=== PATIENT | female | born 1975 | race Asian ===

== ENCOUNTER 2016-09-21 17:36 | Emergency (ER) | payer SELFPAY ==
[~2016-09-21] VITALS: Ht 160 cm; Wt 83.6 kg
[2016-09-21 17:40] VITALS: BP 108/67
[2016-09-21] MEDS ORDERED: KETOROLAC 30 MG/1 ML IM ONE (19:30)
[2016-09-21] MEDS ORDERED: KETOROLAC 30 MG/1 ML ONE (20:01)
== END 2016-09-21 20:41 | disposition home or self-care (01) ==
LOC: ED 20:30
DX: J02.8 Acute pharyngitis due to other specified organisms (principal); B97.89 Other viral agents as the cause of diseases classified elsewhere
CPT/HCPCS: 71020; 96372; 99284; J1885

== ENCOUNTER 2017-03-28 23:27 | Emergency (ER) | payer SELFPAY ==
[~2017-03-28] VITALS: Ht 162.6 cm; Wt 86.8 kg
[2017-03-28] MEDS ORDERED: DEXAMETHASONE 4 MG/ML, 1ML ONE (23:56)
[2017-03-28] MEDS ORDERED: HYDROcodone/APAP 5/325 TABLET ONE (23:56)
[2017-03-28] MEDS ORDERED: KETOROLAC 30 MG/1 ML ONE (23:57)
[2017-03-29] MEDS ORDERED: KETOROLAC 30 MG/1 ML IM ONE
[2017-03-29] MEDS ORDERED: HYDROcodone/APAP 5/325 TABLET PO ONE
[2017-03-29] MEDS ORDERED: DEXAMETHASONE 4 MG/ML, 1ML PO ONE
[2017-03-29 01:47] VITALS: BP 113/67
== END 2017-03-29 01:49 | disposition home or self-care (01) ==
LOC: ED 23:59
DX: B34.9 Viral infection, unspecified (principal); J02.9 Acute pharyngitis, unspecified
CPT/HCPCS: 71010; 87081; 87880; 96372; 99285; J1100; J1885

== ENCOUNTER 2019-01-20 20:39 | Emergency (ER) | payer OTHER ==
[~2019-01-20] VITALS: Ht 162.6 cm; Wt 89.9 kg
[2019-01-20 21:04] VITALS: BP 123/90
--- NOTE | 2019-01-20 21:04 | NUR ---
first contact with pt. pt c/o full body achesx3 days and febrile s/s. States diffuse abd pain. Denies v/d. pt's aox4. resps even and unlabored. bp/spo2 monitors in place. call light within reach. edmd at bedside to evaluate now.
[2019-01-20] MEDS ORDERED: ACETAMINOPHEN 500 MG TABLET ONE (21:18)
--- NOTE | 2019-01-20 21:23 | NUR ---
PT MEDICATED PER EMAR. PT TOLERATED WELL.
[2019-01-20 21:24] LABS: BASOPHILS # (AUTO) 0.02 x10^3/uL (0-0.1); BASOPHILS % (AUTO) 0 % (0-1); EOSINOPHILS # (AUTO) 0.18 x10^3/uL (0-0.4); EOSINOPHILS % (AUTO) 3 % (1-7); LYMPHOCYTES # (AUTO) 1.25 x10^3/uL (1-3.4); LYMPHOCYTES % (AUTO) 22 % (22-44); MD NO; MEAN CORPUSCULAR HEMOGLOBIN 26.6 pg (27.0-34.8); MEAN CORPUSCULAR HGB CONC 32.4 g/dL (32.4-35.8); MEAN PLATELET VOLUME 6.9 fL (7.4-10.4); MONOCYTES # (AUTO) 0.46 x10^3/uL (0.2-0.8); MONOCYTES % (AUTO) 8 % (2-9); NEUTROPHILS # (AUTO) 3.71 x10^3/uL (1.8-6.8); NEUTROPHILS % (AUTO) 66 % (42-75); PLATELET COUNT 276 x10^3/uL (130-400); RED BLOOD COUNT 4.53 x10^6/uL (3.82-5.3); RED CELL DISTRIBUTION WIDTH 13.8 % (9.6-15.2)
[2019-01-20] MEDS ORDERED: ACETAMINOPHEN 500 MG TABLET PO ONE (21:30)
[2019-01-20 21:31] LABS: ALANINE AMINOTRANSFERASE 33 U/L (12-78); ALBUMIN 3.5 g/dL (3.4-5.0); ANION GAP 8 mmol/L (5-15); CALCIUM 8.4 mg/dL (8.5-10.1); CHLORIDE 110 mmol/L (98-107); CREATININE 0.89 mg/dL (0.55-1.02)
[2019-01-20 21:33] LABS: ALKALINE PHOSPHATASE 116 U/L (45-117); BILIRUBIN,TOTAL 0.3 mg/dL (0.2-1.0); TOTAL PROTEIN 7.6 g/dL (6.4-8.2)
--- NOTE | 2019-01-20 21:56 | NUR ---
PT GIVEN DC INSTRUCTIONS AND SCRIPT. PT EDUCATED REGARDING DC MEDICATION. PT'S AOX4. RESPS EVEN AND UNLABORED. NO ACUTE DISTRESS AT DC. PT AMB TO DC WITH STEADY GAIT.
== END 2019-01-20 21:57 | disposition home or self-care (01) ==
LOC: ED 21:50
DX: B34.9 Viral infection, unspecified (principal)
CPT/HCPCS: 36415; 80053; 83690; 85025; 99283